=== PATIENT | male | born 1980 | race Caucasian/White ===

== ENCOUNTER → 2017-06-30 | Outpatient (CLI) | payer OTHER | END | disposition home or self-care (01) | LOC: KCIC MRI 09:07 | DX: S49.81XD Other specified injuries of right shoulder and upper arm, subsequent encounter (principal); X58.XXXD Exposure to other specified factors, subsequent encounter | CPT/HCPCS: 73221 ==

== ENCOUNTER → 2020-01-04 | Outpatient (CLI) | payer OTHER ==
[2014-09-26 19:28] VITALS: BP 142/80
--- NOTE | 2020-01-04 08:46 | RAD ---
Ultrasound of left lower extremity soft tissues for dog bite 4 weeks ago. TECHNIQUE AND FINDINGS: Real-time grayscale imaging of the area of interest at the posterior calf is performed. There is some subcutaneous edema which may reflect cellulitis. No shadowing foreign bodies are identified. No organized fluid collections are evident. Visualized muscles appears normal. IMPRESSION: 1. Subcutaneous edema which in the current clinical context could reflect cellulitis. No abscesses or sonographically apparent foreign bodies. Electronically signed by: Marty Moody MD (01/04/2020 8:43 AM) [id number]
== END ==
LOC: US 06:49
PROVIDERS: ATTEND Family Medicine
DX: S81.852D Open bite, left lower leg, subsequent encounter (principal); W54.0XXD Bitten by dog, subsequent encounter; R60.9 Edema, unspecified
CPT/HCPCS: 76881